=== PATIENT | female | born 1995 | race Caucasian/White ===

== ENCOUNTER 2016-11-14 12:47 | Day surgery (SDC) | payer OTHER ==
[2016-11-14] MEDS ORDERED: LACTATED RINGERS 1,000 ML IV ONE (13:29)
[2016-11-14] MEDS ORDERED: LIDOCAINE 1% 20 ML VIAL (10MG/ML) FOR IV START INTRADERMA ONE (13:30)
[2016-11-14] MEDS ORDERED: ONDANSETRON 4 MG/2 ML VIAL IVP ONE ×2 (13:31→16:23)
[2016-11-14] MEDS ORDERED: DEXAMETHASONE SOD PHOSPHATE 10 MG/ML 1 ML VIAL IV ONE (13:32)
[2016-11-14] MEDS ORDERED: MIDAZOLAM 2 MG/2 ML VIAL IV ONE (13:33)
[2016-11-14] MEDS ORDERED: ceFAZolin 1,000 MG in DEXTROSE/WATER 1 50ML.BAG IVPB STA (14:00)
[2016-11-14] MEDS ORDERED: ceFAZolin 2 GM in SODIUM CHLORIDE 0.9% 100 ML IVPB ONE (14:06)
[2016-11-14] MEDS ORDERED: PROPOFOL 10 MG/ML 20 ML VIAL IV ONE (14:44)
[2016-11-14] MEDS ORDERED: SUCCINYLCHOLINE CHLORIDE 100 MG/5 ML SYR IV ONE (14:44)
[2016-11-14] MEDS ORDERED: fentaNYL (PF) 50 MCG/ML 2 ML AMP ONE (14:44)
[2016-11-14] MEDS ORDERED: HYDROmorphone (PF) 1 MG/ML ONE (14:44)
[2016-11-14] MEDS ORDERED: MIDAZOLAM 2 MG/2 ML VIAL ONE (14:44)
[2016-11-14] MEDS ORDERED: LIDOCAINE 1% INJ 10MG/ML (20 ML MDV) ONE (14:44)
[2016-11-14] MEDS ORDERED: ceFAZolin 1,000 MG VIAL IRRIGATION ONE (14:48)
[2016-11-14] MEDS ORDERED: BUPIVACAINE (PF) 0.5% 30 ML VIAL SQ ONE (15:02)
[2016-11-14] MEDS ORDERED: LIDOCAINE 2% INJ 20 MG/ML SQ ONE (15:02)
[2016-11-14 16:07] VITALS: TEMP 97.6
--- NOTE | 2016-11-14 16:18 | FL ---
EXAMINATION TYPE: FL guidance operating room, XR finger 2 views LT DATE OF EXAM: 11/14/2016 3:57 PM COMPARISON: NONE HISTORY: 21-year-old female ORIF left fifth finger FINDINGS: 2 fluoroscopic images show 3 cortical screw fixation across the fifth proximal phalanx. FLUOROSCOPY Fluoroscopy time of 8 seconds was used during left fifth finger ORIF. 2 image/s document/s tanja mahoney. IMPRESSION: Intraoperative fluoroscopy during left fifth proximal phalangeal ORIF as above.
[2016-11-14 16:47] VITALS: RESP 16
[2016-11-14 16:58] VITALS: PULSE 76
[2016-11-14] MEDS ORDERED: PROMETHAZINE INJ 25 MG/ML 1 ML VIAL IVPB ONE (17:15)
[2016-11-14 17:23] VITALS: BP 128/72
--- NOTE | 2016-11-30 11:31 | OP ---
DATE OF SERVICE: 11/14/2016 SURGEON: DEYA ARIZA DO BLAST FURNACE OPERATOR: PREOPERATIVE DIAGNOSIS: Spiral oblique fracture proximal phalanx, left little finger. POSTOPERATIVE DIAGNOSIS: Spiral oblique fracture proximal phalanx, left little finger. OPERATION: Open reduction, internal fixation proximal phalanx, left little finger. ANESTHESIA: ESTIMATED BLOOD LOSS: SPECIMENS REMOVED: COMPLICATIONS: OPERATIVE FINDINGS: INDICATIONS: A 21-year-old woman with a closed spiral oblique fracture of the shaft of the proximal phalanx of the left little finger with displacement and rotation. The reduction was successful and stable and anatomic alignment was achieved. DESCRIPTION OF PROCEDURE: The patient was taken to the operative suite, given IV sedation, and a digital block was performed with a combination of Xylocaine and Marcaine, both without epinephrine. Her hand was prepped and draped in the usual manner. It was elevated, exsanguinated and cuff was inflated to 250 mmHg. A dorsal incision was created over the proximal phalanx of the left little finger. Hemostasis acquired with electrocautery and pressure. The extensor mechanism and periosteum were both incised longitudinally exposing the fracture. A fair amount of callus had formed and a small baby rongeur was used to freshen up the joint surfaces and remove the healing tissue in the fracture site. Once the fracture lines were identified, reduction was performed under direct vision, held with a clamp and three 1.5 mm cortical screws were used to fixate the fracture. The wound was thoroughly irrigated and both periosteum and extensor mechanism were closed with a 4-0 PDS suture. Tourniquet was then released. Hemostasis was acquired with pressure and electrocautery. Skin was closed with 5-0 nylon suture. Soft, bulky dressing with the left little and ring finger was applied and patient was taken to the recovery room in satisfactory condition.
== END 2016-11-14 17:38 | disposition home or self-care (01) ==
LOC: OR 12:47
PROVIDERS: ATTEND Orthopaedic Surgery Hand Surgery
DX: S62.617A Displaced fracture of proximal phalanx of left little finger, initial encounter for closed fracture (principal); W10.9XXA Fall (on) (from) unspecified stairs and steps, initial encounter; G35 Multiple sclerosis; Z79.1 Long term (current) use of non-steroidal anti-inflammatories (NSAID); Z79.891 Long term (current) use of opiate analgesic; Z79.899 Other long term (current) drug therapy
CPT/HCPCS: 26735; 81025; 73140; C1713; J2001 ×2; J2250; J1100; J2550; J0690; J2405; J3010; J1170; J0330; J2704

== ENCOUNTER 2017-12-15 07:02 | Day surgery (SDC) | payer OTHER ==
[2017-12-11 11:24] VITALS: BMI 35.7
[~2017-12-15 07:02] MED LIST: DEXAMETHASONE SOD PHOSPHATE 10 MG/ML 1 ML VIAL IV ONE; HEPARIN SODIUM,PORCINE 5,000 UNIT/ML 1 ML VIAL SQ ONE; LACTATED RINGERS 1,000 ML IV SCH; MIDAZOLAM 2 MG/2 ML VIAL IV PRN; ONDANSETRON 4 MG/2 ML VIAL IVP ONE; SCOPOLAMINE 1.5MG/72HR PATCH TRANSDERM ONE; ceFAZolin IN SWFI 2 GM/20 ML SYRINGE IVP ONE
[2017-12-15 07:30] VITALS: RESP 16; TEMP 97.8
--- NOTE | 2017-12-15 07:48 | P.GSHP ---
History of Present Illness H&P Date: 12/15/17 Chief Complaint: Right upper quadrant pain The 22-year-old female who presents today for laparoscopic cholecystectomy. Patient had a recent HIDA scan which shows abnormal ejection fraction consistent with chronic cholecystitis. Past Medical History Past Medical History: Asthma, GERD/Reflux, Neurologic Disorder Additional Past Medical History / Comment(s): hx ms, hx fx lt forearm as child, past hx of asthma History of Any Multi-Drug Resistant Organisms: None Reported Past Surgical History: Section, Orthopedic Surgery Additional Past Surgical History / Comment(s): hx laser eye surgery 2000, left pinkie finger screws Past Anesthesia/Blood Transfusion Reactions: Postoperative Nausea & Vomiting ( PONV) Smoking Status: Current every day smoker - Past Family History Father Family Medical History: No Reported History Medications and Allergies Home Medications Medication Instructions Recorded Confirmed Type Ranitidine HCl [Zantac] 1 tab PO BID PRN 11/14/16 12/15/17 History Etonogestrel [Nexplanon] 68 mg SQ [id number] 12/11/17 12/11/17 History Ibuprofen [Motrin Ib] 200 mg PO Q6H PRN 12/11/17 12/11/17 History Allergies Allergy/AdvReac Type Severity Reaction Status Date / Time adhesive tape AdvReac Rash/Hives Verified 12/15/17 07:30 Surgical - Exam Vital Signs Temp Pulse Resp BP Pulse Ox 97.8 F 70 16 127/66 100 12/15/17 07:29 12/15/17 07:29 12/15/17 07:29 12/15/17 07:29 12/15/17 07:29 - General well developed, no distress - Eyes PERRL - ENT normal pinna - Neck no masses - Respiratory normal expansion - Cardiovascular Rhythm: regular - Abdomen Abdomen: soft, non tender Assessment and Plan Assessment: Chronic cholecystitis We'll perform laparoscopic cholecystectomy
[2017-12-15] MEDS ORDERED: NEOSTIGMINE 1 MG/ML 10 ML VIAL ONE (07:52)
[2017-12-15] MEDS ORDERED: SUCCINYLCHOLINE CHLORIDE 100 MG/5 ML SYR IV ONE (07:52)
[2017-12-15] MEDS ORDERED: ROCURONIUM BROMIDE 10 MG/ML 10 ML VIAL IV ONE (07:52)
[2017-12-15] MEDS ORDERED: MIDAZOLAM 2 MG/2 ML VIAL ONE (07:52)
[2017-12-15] MEDS ORDERED: KETOROLAC 30 MG/ML 1 ML VIAL ONE (07:52)
[2017-12-15] MEDS ORDERED: LIDOCAINE 1% INJ 10MG/ML (20 ML MDV) ONE (07:52)
[2017-12-15] MEDS ORDERED: fentaNYL (PF) 50 MCG/ML 2 ML AMP ONE (07:52)
[2017-12-15] MEDS ORDERED: PROPOFOL 10 MG/ML 20 ML VIAL IV ONE (07:52)
[2017-12-15] MEDS ORDERED: HYDROmorphone (PF) 1 MG/ML ONE (07:52)
[2017-12-15] MEDS ORDERED: GLYCOPYRROLATE 0.2 MG/ML 2 ML VIAL ONE (07:52)
[2017-12-15] MEDS ORDERED: BUPIVACAINE (PF) 0.5% 30 ML VIAL SQ ONE (08:19)
[2017-12-15] MEDS: fentaNYL (PF) 50 MCG/ML 2 ML AMP IV PRN ×3 (09:00→09:24)
[2017-12-15] MEDS ORDERED: LACTATED RINGERS 1,000 ML IV ONE (09:11)
[2017-12-15] MEDS ORDERED: ONDANSETRON 4 MG/2 ML VIAL IVP ONE (09:33)
[2017-12-15] MEDS ORDERED: HYDROcodone/APAP 7.5-325MG 1 EACH TAB PO ONE (10:00)
[2017-12-15 10:38] VITALS: BP 124/76; PULSE 60
--- NOTE | 2017-12-15 13:39 | P.OP ---
Date of Procedure: 12/15/17 Preoperative Diagnosis: Cholecystitis Postoperative Diagnosis: Cholecystitis Procedure(s) Performed: Laparoscopic cholecystectomy Anesthesia: SARHA Surgeon: Everette Sanders Estimated Blood Loss (ml): 5 Pathology: other (Gallbladder) Condition: stable Disposition: PACU Description of Procedure: The patient was placed on the operating table. The patient received a general endotracheal tube anesthesia. The patients abdomen was prepped and draped in the usual sterile fashion. Through an infraumbilical stab incision, the fascia of the anterior abdominal wall was grasped with a pair of Kochers and then the Veress needle was placed in the peritoneal cavity. Position of the Veress needle was confirmed with positive drop test. The abdomen was then insufflated. After adequate insufflation, the 10 mm trocar was placed in the peritoneal cavity. Following this the laparoscope was placed in the peritoneal cavity. The patient was placed in the head-up, right side up position and then a 5 mm trocar was placed in the right lateral and right subcostal position under direct visualization. A 8 mm trocar was placed in the epigastric position. The gallbladder was grasped in the fundus and infundibulum. Traction on the gallbladder was placed in the lateral and the cephalad positions. The triangle of Calot was visualized.. The cystic duct was bluntly dissected until the union of the cystic duct and common bile duct was seen. The cystic duct was then divided and sealed with the Harmonic scissors. A PDS Endoloop was then placed throughout the cystic duct stump. The cystic artery divided and sealed with the Harmonic scissors. The gallbladder was then removed from the liver bed using Harmonic scissors. The gallbladder was then extracted through the epigastric port site. Operative field was checked for any bleeding spots and Harmonic scissors was used to coagulate the liver bed. The abdomen was irrigated. The trocars were removed. The skin was closed using interrupted 3-0 Vicryl suture. Dermabond dressing were applied. The patient tolerated the procedure well.
== END 2017-12-15 10:50 | disposition home or self-care (01) ==
LOC: OR 07:02
PROVIDERS: ATTEND Surgery
DX: K80.18 Calculus of gallbladder with other cholecystitis without obstruction (principal); K21.9 Gastro-esophageal reflux disease without esophagitis; G35 Multiple sclerosis; J44.9 Chronic obstructive pulmonary disease, unspecified; F17.210 Nicotine dependence, cigarettes, uncomplicated; Z79.899 Other long term (current) drug therapy; Z91.09 Other allergy status, other than to drugs and biological substances
CPT/HCPCS: 81025; 88304; 47562; J2250; J1644; J1100; J2710; J2405; J2001; J3010; J1885; J1170; J0330; J2704; J0690